=== PATIENT | female | born 1985 | race Caucasian/White ===

== ENCOUNTER → 2023-07-05 13:35 | Outpatient (CLI) | payer OTHER, SELFPAY ==
--- NOTE | ~2023-07-05 | MM_ITS ---
EXAMINATION: MM scrn ken implant BI w leonidas HISTORY: Screening mammogram TECHNIQUE: Craniocaudal and mediolateral oblique 3-D tomosynthesis images with implant displacement a nd synthetic 2-D images were generated. Craniocaudal and mediolateral oblique views of the breasts wi thout implant displacement were obtained using full field digital mammography. CAD analysis was submi tted and interpreted. COMPARISON: No prior mammogram is available for comparison at this institution. BREAST PARENCHYMAL COMPOSITION: The breasts are extremely dense, which lowers the sensitivity of mamm ography FINDINGS: There are focal asymmetries in the medial aspect of the right breast no mammographic eviden ce for malignancy in the left breast. IMPRESSION: 1. Right breast asymmetries. 2. Additional mammographic views and possible breast ultrasound are recommended. BI-RADS Category 0: Incomplete: Needs additional imaging evaluation. Reviewed, dictated and finalized at location A. X FASHIONS DESIGNER IMPRESSION: 1. Right breast asymmetries. 2. Additional mammographic views and possible breast ultrasound are recommended . BI-RADS Category 0: Incomplete: Needs additional imaging evaluation.
== END ==
DX: Z12.31 Encounter for screening mammogram for malignant neoplasm of breast (principal); R92.8 Other abnormal and inconclusive findings on diagnostic imaging of breast
CPT/HCPCS: 77063; 77067

== ENCOUNTER → 2023-08-02 09:32 | Outpatient (CLI) | payer OTHER, SELFPAY ==
--- NOTE | ~2023-08-02 | MMUS_ITS ---
EXAMINATION: MM diag ken implant RT w leonidas, US breast RT complete HISTORY: Follow-up right breast asymmetry TECHNIQUE: Additional 3-D tomosynthesis images of the right breast were performed and synthetic 2-D i mages were generated. CAD analysis was submitted and interpreted. High resolution complete right soraida st ultrasound was performed. COMPARISON: 07/05/2023 BREAST PARENCHYMAL COMPOSITION: The breasts are extremely dense, which lowers the sensitivity of mamm ography FINDINGS: MAMMOGRAPHIC FINDINGS: There are no suspicious masses, calcifications or architectural distortion in the right breast to sug gest malignancy. There is a subpectoral saline implant. ULTRASOUND: Complete US of all 4 quadrants of the right breast and retroareolar region was reviewed. Normal heter ogeneous echotexture without focal solid or cystic mass. IMPRESSION: 1. No evidence for malignancy in the right breast. 2. Routine yearly screening mammogram and regular clinical breast examination are recommended. BI-RADS Category 1: Negative Reviewed, dictated and finalized at location A. R COVERING PRINTER IMPRESSION: 1. No evidence for malignancy in the right breast. 2. Routine yearly screening mammogram and regular clinical breast examination a re recommended. BI-RADS Category 1: Negative
== END ==
DX: R92.8 Other abnormal and inconclusive findings on diagnostic imaging of breast (principal)
CPT/HCPCS: 76641; 77061; 77065; G0279

== ENCOUNTER 2025-05-25 08:25 | Outpatient (CLI) | payer OTHER, SELFPAY ==
--- NOTE | ~2025-05-25 | MM_ITS ---
EXAMINATION: MM scrn ken implant BI w leonidas HISTORY: Screening mammogram TECHNIQUE: Craniocaudal and mediolateral oblique 3-D tomosynthesis images with implant displacement and synthetic 2-D images were generated. Craniocaudal and mediolateral oblique views of the breasts without implant displacement were obtained using full field digital mammography. CAD analysis was submitted and interpreted. COMPARISON: Comparison to multiple prior studies sequentially, with oldest reviewed study dated 07/05/2023. BREAST PARENCHYMAL COMPOSITION: Dense: The breasts are extremely dense, which lowers the sensitivity of mammography. FINDINGS: There is no evidence of suspicious mass, calcification, or architectural distortion to suggest malignancy in either breast. There has been no suspicious interval change. IMPRESSION: 1. No mammographic evidence of malignancy. 2. Recommend routine screening mammography in one year. BI-RADS Category 1: Negative Reviewed, dictated and finalized at location C. ITECTURAL TECHNICIAN
--- OUTSIDE RECORDS SUMMARY | 2025-05-25 08:38 | XMS_ITS | Encounter Summary ---
Author Organization [facility] Address 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 [address] [address] Jesus Coates MD [address] [facility] [address] [place] [address] documented as of this encounter Procedures Procedure Name Priority Date/Time Associated Diagnosis Comments CBC WITH DIFFERENTIAL Stat 12/24/2007 6:01 AM CDT TYPE AND SCREEN Routine 12/24/2007 5:55 AM CDT documented in this encounter Results * (ABNORMAL) CBC WITH DIFFERENTIAL (12/24/2007 6:01 AM CDT) RBC 4.17 3.90 - 4.90 M/uL [facility] MCHC 35.6(H) 31.5 - 35.5 % [facility] MCV 91.6 82.0 - 99.0 fL [facility] PLATELETS 149 140 - 350 K/uL [facility] HEMOGLOBIN 13.6 11.8 - 14.8 g/dL [facility] RDW 13.2 11.5 - 14.5 % [facility] WBC 9.0 4.0 - 9.8 K/uL [facility] MCH 32.6 27.2 - 32.6 pg [facility] MPV 11.2 9.3 - 12.4 fL [facility] HEMATOCRIT 38.2 35.5 - 44.0 % [facility] RDW-STDEV 43.7 37.1 - 48.7 fL [facility] MONOCYTES 10 3 - 13 % [facility] MONOCYTE ABSOLUTE 0.91 0.10 - 1.30 K/uL [facility] NEUTROPHILS 69 45 - 70 % [facility] NEUTROPHIL ABSOLUTE 6.17 1.90 - 7.00 K/uL [facility] EOSINOPHILS 1 0 - 7 % [facility] EOSINOPHIL ABSOLUTE 0.09 0.00 - 0.70 K/uL [facility] LYMPHOCYTES 20 16 - 45 % [facility] LYMPHOCYTE ABSOLUTE 1.79 0.70 - 4.50 K/uL [facility] BASOPHILS 0 0 - 2 % [facility] BASOPHILS ABSOLUTE 0.01 0.00 - 0.20 K/uL [facility] Blood specimen (specimen) 12/24/2007 6:01 AM CDT 12/24/2007 6:01 AM CDT Mt Kaiser MD HEMATOLOGY ORDERABLES Edited INTERFACE SYSTEM Refer to clinic/hospital department [facility] CLIA# [id number] [address] [place] [address] * TYPE AND SCREEN (12/24/2007 5:55 AM CDT) HISTORY CHECK No Historical ABO/Rh [facility] ABO/RH TYPE A Positive [facility] SPECIMEN LIFE 3 days from drawdate [facility] ANTIBODY SCREEN Negative [facility] Blood specimen (specimen) 12/24/2007 5:55 AM CDT Mt Kaiser MD BLOOD BANK ORDERABLES Edited Performing Organization Address City/[facility] de Phone Number [facility] CLIA# [id number] [address] [place] [address] documented in this encounter Visit Diagnoses Diagnosis Normal delivery documented in this encounter Care Teams Groover And Turner Relationship Specialty Start Date End Date Jesus Coates MD [address] [facility] [address] [place] [address] PCP - General Internal Medicine 04/16/11 documented as of this encounter
--- OUTSIDE RECORDS SUMMARY | 2025-05-25 08:39 | XMS_ITS | Clinical Summary ---
Author Organization [facility] Address [address] [place] [address] Care Team Providers Care It Project Coordinator Name Role Phone Jesus Coates MD Primary Care Provider [phone] Arian Lora PT Unavailable Unavailable Allergies Active Allergy Reactions Criticality Noted Date Comments Codeine Anaphylaxis,Itching, Shortness of breath High 08/12/2008 Morphine Anaphylaxis High 04/16/2011 Medications ibuprofen (ADVIL,MOTRIN) 200 mg tab/cap Take 2 tablet/capsule (400 mg total) by mouth every 6 (six) hours as needed for pain Active acetaminophen (TYLENOL) 500 mg tablet Take 2 tablets (1,000 mg total) by mouth as needed for pain Active vitamin B complex capsuleIndicati ons:Vitamin Deficiency Take 1 capsule by mouth daily before breakfast Active Breo Ellipta 200-25 mcg/dose diskus inhaler TAKE 1 PUFF BY MOUTH EVERY DAY Active tretinoin (RETIN-A) 0.1 % cream APPLY THIN LAYER TO FACE AT BEDTIME 4 Active naproxen (NAPROSYN) 500 mg tablet Take 1 tablet (500 mg total) by mouth 2 (two) times a day with meals 30 tablet 5 Active lidocaine (LIDODERM) 5 % Place 1 patch on the skin daily for 12 hours for 14 days Remove & discard patch within 12 hours or as directed by . 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 RTO 12m. I will send the results to the portal. If she has not heard in a week, to call the office. Will arrange for her to have gardasil Migraine 06/24/2023 Menorrhagia 08/12/2008 Resolved Problems Problem Noted Date Diagnosed Date Resolved Date Acne 12/24/2022 07/27/2024 Bicipital tendonitis of left shoulder 01/08/2022 07/27/2024 Overview (01/08/2022): Added automatically from request for surgery [id number] Instability of left shoulder joint 02/23/2019 07/27/2024 Overview (02/23/2019): Added automatically from request for surgery [id number] Abnormal liver function tests 03/06/2009 07/27/2024 Alcohol intoxication 03/06/2009 025 Nausea with vomiting 03/06/2009 025 Seizure 03/05/2009 07/27/2024 Immunizations Immunization Administration Dates Next Due Moderna SARS-CoV-2 Monovalent Vaccination (12+ Y RS) 02/24/2021,08/05/2020 Surgical History Surgery Date Site/Laterality Comments SHOULDER SURGERY 08/15/2016 - 09/11/2016 Left scope--anchors placed CLAVICLE SURGERY 07/15/2003 - 07/14/2004 Left no hardware. TONSILLECTOMY 07/15/2012 - 07/14/2013 became septic post-op in ICU 5 days AUGMENTATION MAMMAPLASTY 07/15/2002 - 07/14/2003 SHOULDER ARTHROSCOPY W/ CAPSULAR REPAIR 07/15/2018 - 07/14/2019 Medical History Medical History Date Comments Anemia MTHFR, clotting disorder- reports h/o clot in umbilical cord when , denies h/o DVT/PE Migraines last migraine >1 year ago. No meds at this time Acne Seizures (HCC) reports in child nesbitt, last age ~15 Abnormal liver function tests 03/06/2009 Bicipital tendonitis of left shoulder 01/08/2022 Added automatically from req uest for surgery [id number] Instability of left shoulder joint 02/23/2019 Added automatically from request for surgery [id number] Seizure (HCC) 03/05/2009 Family History Medical History Relation Name Comments Hyperlipidemia Father Cancer Neg Hx no colon, breas t or obstetrics gynecology physician cancer cmt 07/27/24 Relation Name Status Comments Father Social History Tobacco Use Types Packs/Day Years Used Date Smoking Tobacco: Never Smokeless Tobacco: Never Tobacco Cessation:Counseling Given: Not Answered Alcohol Use Standard Drinks/Week Comments Yes 1 (1 standard drink = 0.6 oz pur e alcohol) Humiliation, Afraid, Rape, and Kick questionnair e Answer Date Recorded Within the last year, have y ou been afraid of your partner or ex-partner? No 07/27/2024 Within the last year, have y ou been humiliated or emotionally abused in other ways by your partner or ex-partner? No Within the last year, have y ou been kicked, hit, slapped, or otherwise physically hurt by your partner or ex-partner? No 07/27/2024 Within the last year, have y ou been raped or forced to have any kind of sexual activity by your partner or ex-partner? No 07/27/2024 AUDIT-C Answer Date Recorded Q1: How often do you have a drink containing alc ohol? 2-4 times a month 02/09/2022 Q2: How many drinks containi ng alcohol do you have on a typical day when you are drinking? 1 or 2 02/09/2022 Q3: How often do you have si x or more drinks on one occasion? Never 02/09/2022 PHQ-2 Answer Date Recorded PHQ-2 Total Score (If total score is 3 or more points, staff should administer the PHQ-9) 0 07/27/2024 Personal Safety Answer Date Recorded Have you ever been in or are you currently in a harmful physical or emotional relationship or is someone making you feel afraid or unsafe? 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 Gender Identity Not on file Sexual Orientation Not on file Obstetrics History Para Term AB IAB SAB Ectopic Multiple Livin g Live Births 2 2 1 1 Date Outcome GA Total Labor Labor/2nd/3rd Weight Sex Type Anes PTL Yojana A1 A5 Name Clin Term Last Filed Vital Signs Vital Sign Reading Time Taken Comments Blood Pressure 138/92 01/29/2025 8:06 PM CDT Pulse 72 01/29/2025 8:06 PM CDT Temperature 37.3 C (99.1 F) 01/29/2025 3:21 PM CDT Respiratory Rate 18 01/29/2025 8:06 PM CDT Oxygen Saturation 97% 01/29/2025 8:06 PM CDT Inhaled Oxygen Concentration - - Weight 63.5 kg (140 lb) 01/29/2025 3:21 PM CDT Height 167.6 cm (5' 6) 01/29/2025 3:21 PM CDT Body Mass Index 22.6 01/29/2025 3:21 PM CDT Plan of Treatment Health Maintenance Due Date Last Done Comments Breast Cancer Screening-Mammogram 1983 Cervical Cancer Screening 1983 Hepatitis C Screening 1983 Varicella Vaccines (1 of 2 - 13+ 2-dose series) 1996 Pneumococcal vaccine <65 (1 of 2 - PCV) 2002 HPV Vaccines (1 - 3-dose SCD M series) 2010 Covid-19 Vaccine (3 - 2024-2 6 season) 2025 02/24/2021, 08/05/2020 Influenza Vaccine (#1) 2025 3, 05/08/2022, 05/07/2022, Additional history exists Depression Screening 07/27/2025 07/27/2024 Regular Well Visit/Exam 18-64 07/27/2025 07/27/2024 DTaP/Tdap/Td Vaccine (4 - Td or Tdap) 05/19/2033 05/19/2023, 01/29/2022, 10/05/2016 Hepatitis B Screening Completed 01/11/2009 , 09/13/2008, 08/12/2008 Medical Devices Implanted Type Area Corduroy Cutting Supervisor Device Identifier Shelf Expiration Date Model / Serial / Lot [employer] [id number] Corkscrew Suturetape 5.5mm 14.7mm Bioabsorbable Full Thread 1.3mm - [id number] Implanted:Qty: 3 on 03/23/2019 by Ramirez Hart MD at [facility] Left: Shoulder [employer] 11/11/2020 [id number] / / [id number] [employer] 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
--- OUTSIDE RECORDS SUMMARY | 2025-05-25 08:39 | XMS_ITS | Patient Health Record ---
Author Organization [facility] ([address]) Address [address] [address] Care Team Providers Care Telemetry Monitor Name Role Phone Jesus Coates Primary Care Provider Suzy Malloy Unavailable [phone] Allergies Allergen (clinical drug ingredient) Drug/Non Drug Allergy documented on EMR Reaction Allergy Type Onset Date Status codeine Codeine (uncoded) anaphylaxis Allergy Active morphine Morphine anaphylactoid Drug Allergy Act zachery Reason For Referral No Information Medications Medication SIG (Take, Route, Frequency, Duration) Notes Start Date End Date Status Diflucan 100 MG 1 tablet Orally Active Doxycycline 40 MG 1 capsule in the mor carl on an empty stomach Orally Once a day Active Spironolactone 100 MG 1 tablet Orally On ce a day Active B Complex - as directed Orally Active Breo Ellipta 100-25 MCG/ACT 1 puff Inhal ation Once a day Active Immunizations Vaccine Route Administration Date Status Comme nts Hepatitis B (20 and more) Unknown 01/11/2009 Administer ed Portal Information Hepatitis A Unknown 01/11/2009 Administered Portal Info rmation NOC Tdap Unknown 04/18/2022 Administered Portal Infor mation Influenza Unknown 05/06/2023 Administered Portal Infor mation Social History Tobacco Use: Social History Observation Description Date Details (start date - stop date) Never Smoker NA - NA Tobacco Control (Standard) Question Answer Notes Tobacco use: Nonsmoker Problems Problem Type SNOMED Code ICD Code Onset Dates Problem Status W/U Status Risk Notes Problem Chronic allergic conjunctivitis (18014366) Other chronic allergic conjunctivitis (H10.45) Active confirmed Problem Allergic rhinitis caused by pollen (disorder) (25193914) Allergic rhinitis due to pollen (J30.1) Active confirmed Problem Allergic rhinitis (13573618) Other allergic rhinitis (J30.89) Active confirmed Problem Chronic rhinitis (17229479) Chronic rhinitis (J31.0) Active confirmed Problem Allergy status t o narcotic agent (Z88.5) Active confirmed Plan Of Treatment Pending Test Test Name Order Date RESPIRATORY ALLERGY PROFILE REGION VIII: [place], [place] 03/18/2024 TETANUS ANTITOXOID ANTIBODY (EIA) 2023 DIPHTHERIA ANTITOXOID ANTIBODY 4 IMMUNOGLOBULINS G/A/M 03/18/2024 HAEMOPHILUS INFLUENZAE B ANTIBODY, IGG 0 03/18/2024 S. PNEUMONIAE IGG AB, 23 SEROTYPES, S Insurance Providers Payer Name Payer Address Payer Phone Subscriber Number Group Number Insured Name Patient Relationship to Insured Coverage Start Date Coverage End Date [facility] [address] [place], [place] [address] [id number] Coleman Roach Self - patient is the insured Medical (General) History Medical History History ICD Code Unspecified asthma, uncomplicated J45.90 9 Surgical History Surgery Date(Month/Year) Shoulder surgery 03/28/2023 Shoulder surgery 02/23/2022 tonsillectomy 08/24/2013 Breast Implants 07/15/2003 shoulder surgery 2020 shoulder surgery 2017 shoulder surgery 2019 right ankle sugery 1999 ear tubes 1985 ear tubes 1987 Hospitalization History Reason Date(Month/Year) urosepsis 1989 Sepsis after tonsillectomy 08/25/2013
--- OUTSIDE RECORDS SUMMARY | 2025-05-25 08:39 | XMS_ITS | Clinical Summary ---
Author Organization [facility] Address [address] [place] [address] Care Team Providers Care Fabric Worker Foreman Name Role Phone Jesus Coates MD Primary Care Provider [phone] Allergies Active Allergy Reactions Criticality Noted Date Comments Codeine Anaphylaxis,Shortnes s of Breath/Wheezing,Itching High 08/12/2008 Morphine Anaphylaxis High 04/16/2011 Medications vitamin B complex Tablet Take 1 Tab by mouth daily. Active ubrogepant (Ubrelvy) 100 mg tablet Take 1 tablet at the onset of migraine and may repeat x 1 (2) hours later. Maximum 200 mg/24 hours 16 Tablet 11 4 Active Additional Information Patient taking differently: CONTINUOUS PRN, Take 1 tablet at the onset of migraine and may repeat x 1 (2) hours later. Maximum 200 mg/24 hours, Reported on 03/08/2025 cholecalciferol , vitD3,/vit K2 (vitamin D3-vitamin K2) 125-90 mcg Capsule Take 1 Tablet by mouth daily. Active fluticasone furoate-vilante roL (Breo Ellipta) 100-25 mcg/dose Disk with Device Take 1 Puff by inhalation daily. Active albuterol-budes onide (Airsupra) 90-80 mcg/actuation HFA Aerosol Inhaler Take 2 Puffs by inhalation Continuous as needed. Active Active Problems Patient Care Coordination No te Formatting of this note migh t be different from the original. Dr. Traylor - Neurologist Problem Noted Date Diagnosed Date Acne 12/24/2022 Seizure disorder 04/16/2011 Menorrhagia 08/12/2008 Migraine Resolved Problems Problem Noted Date Diagnosed Date Resolved Date Pharyngitis, streptococcal 08/15/2013 0 02/21/2016 Streptococcal bacteremia 08/15/201303/2016 Fever 08/14/2013 02/21/2016 Status post tonsillectomy 08/14/2013 Dysphagia 07/04/2011 02/21/2016 Lymphadenopathy 04/16/2011 02/21/2016 MTHFR mutation 08/12/2008 02/21/2016 Encounters Date Type Department Care Team Description 05/18/2025 External Device Data STL ABSTRACTION Provider, Abstract 05/11/2025 External Device Data STL ABSTRACTION Provider, Abstract 05/04/2025 External Device Data ST[facility] ABSTRACTION Provider, Abstract 03/24/2025 Results Follow-Up [facility] [place] [address] [address] [facility] [place] [address] Poornima Richard ANP CBC WITH DIFFERENTIAL, COMPREHENSIVE METABOLIC PANEL, TSH REFLEXIVE, Additional followed-up results: 3 03/08/2025 2:00 PM CDT Office Visit [facility] [address] [facility] [place] [address] Poornima Richard ANP Annual physical exam (Primary Dx); Seizure disorder (CMS/HCC); Migraine without status migrainosus, not intractable, unspecified migraine type; Mild persistent asthma without complication from Last 3 Months Immunizations Immunization Administration Dates Next Due (ADACEL/BOOSTRIX)(10 YR UP) TDAP VACCINE, 0.5ML, IM 05/19/2023,01/29/2022,10/05/2016 10/05/2026 (HAVRIX/VAQTA)(19 YRS UP) HE PATITIS A VACCINE ADULT DOSAGE 1 ML IMM 01/11/2009,08/12/2008 (RECOMBIVAX HB/ENGERIX-B)(11 YR UP) HEPATITIS B VACCINE 10 MCG/1 ML OR 20 MCG/1 ML ADOL OR ADULT 2 - 3 DOSE PF, IM 01/11/2009,09/13/2008,08/12/2008 (SPIKEVAX) (12 YRS UP PRIMAR Y SERIES) COVID-19 VACCINE - MRNA-1273(PF) 100 MCG/0.5 ML IM SUSP 02/24/2021,08/05/2020 INFLUENZA VACCINE QUADRIVALE NT 3 YR UP PF IM 04/02/2016 Influenza Seasonal Unspecifi ed Formulation IM 06/04/2021,04/24/2019,04/07/2013,04/02 Influenza Vaccine Split 3+ Yrs PF IM 05/15/2011 Influenza, Unspecified Formulation 05/06,05/07/2022,06/04/2021,04/24,04/02/2016,04/08/2014,04/07/2013 ,04/02/2012,05/15/2011 Family History Medical History Relation Name Comments Healthy Father Lung Cancer Maternal Grandfather Melanoma Maternal Grandfather Breast Cancer Maternal Grandmother Stroke Mother Healthy Sister 1 Alejandra Healthy Sister 2 Brittany Healthy Sister 3 Maria D Healthy Son [place] Relation Name Status Comments Father Alive Maternal Grandfather Maternal Grandmother Mother Alive Sister 1 Alejandra Alive Sister 2 Brittany Alive Sister 3 Maria D Alive Son [place] Alive Social History Tobacco Use Types Packs/Day Years Used Date Smoking Tobacco: Never Smokeless Tobacco: Never Tobacco Cessation:Counseling Given: Not Answered Alcohol Use Standard Drinks/Week Comments Yes 0 (1 standard drink = 0.6 oz pur e alcohol) 1/ MONTH Comments No Sex and Gender Information Value Date Recorded Sex Assigned at Not on file Legal Sex Female 5:33 AM 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 OPERATOR Gender Identity Not on file Sexual Orientation Not on file Occupation Industry Job Start Date Job End Date Not on file Not on file 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 Last Filed Vital Signs Vital Sign Reading Time Taken Comments Blood Pressure 108/70 03/08/2025 1:41 PM CDT Pulse 61 03/08/2025 1:41 PM CDT Temperature 36.1 C (96.9 F) 03/08/2025 1:41 PM CDT Respiratory Rate 18 08/17/2013 11:56 AM BARRATTE OPERATOR Oxygen Saturation 98% 03/08/2025 1:41 PM CDT Inhaled Oxygen Concentration - - Weight 66.7 kg (147 lb) 03/08/2025 1:41 PM CDT Height 167.6 cm (5' 6) 03/08/2025 1:41 PM CDT Body Mass Index 23.73 03/08/2025 1:41 PM CDT Plan of Treatment Upcoming Encounters Date Type Department Care Team (Late st Contact Info) Description 03/09/2026 2:00 PM CDT Office Visit [facility] [place] [facility] [address] [address] Jesus Coates MD [address] [place] [address] Health Maintenance Due Date Last Done Comments HPV/Cotest (21-29) 2004 HPV VACCINES (1 - 3-dose SCDM series) 2010 HPV/Cotest (30-65) 2013 PAP SMEAR 02/13/2024 02/12/2021 (Prev iously completed), 02/12/2018 BREAST CANCER SCREENING 08/02/2024 08/02/2023 INFLUENZA VACCINE (#1) 2025 , 05/15/2020 (Previously completed), 04/24/2019, Additional history exists COVID-19 Vaccine ( season) 2025 02/24/2021, 08/05/2020 CERVICAL CANCER SCREENING 03/08/2026 Po stponed from 2004 (Other) DTAP/TDAP/TD VACCINES (4 - Td or Tdap) 05/19/2033 05/19/2023, 01/29/2022, 10/05/2016 HEPATITIS B VACCINES Completed 01/11/2009, 09/13/2008, 08/12/2008 Procedures Procedure Name Priority Date/Time Associated Diagnosis Comments VITAMIN D 25 HYDROXY Routine 03/23/2025 8:01 AM CDT Annual physical exam HEMOGLOBIN A1C Routine 03/23/2025 8:01 AM CDT Annual physical exam LIPID PANEL Routine 03/23/2025 8:01 AM CDT Annual physical exam TSH REFLEXIVE Routine 03/23/2025 8:01 AM CDT Annual physical exam COMPREHENSIVE METABOLIC PANEL Routine 03/23/2025 8:01 AM CDT Annual physical exam CBC WITH DIFFERENTIAL Routine 03/23/2025 8:01 AM CDT Annual physical exam MAMMO DIAGNOSTIC UNI RIGHT W OR WO CAD Routine 08/02/2023 Abnormal mammogram of right breast from Last 3 Months or Most Recently Relevant to Health Maintenance Results * TSH REFLEXIVE (03/23/2025 8:01 AM CDT) TSH 1.45 mIU/L [facility] Comment: Reference Range > or = 20 Years 0.40-4.50 Ranges First trimester 0.26-2.66 Second trimester 0.55-2.73 Third trimester 0.43-2.91 FASTING:YES FASTING: YES Test Performed at: [facility] [address] [place] [address] Johana Stanton MD Blood 03/23/2025 8:01 AM CDT 03/23/2025 8:03 AM CDT Poornima MCCRAY CHEMISTRY ORDERABLES Final Result [facility] [phone] [facility] [address] * CBC WITH DIFFERENTIAL (03/23/2025 8:01 AM CDT) WBC 6.1 3.8 - 10.8 Thousand/u L [facility] RBC 4.45 3.80 - 5.10 Million/uL [facility] HEMOGLOBIN 14.1 11.7 - 15.5 g/dL [facility] HEMATOCRIT 42.6 35.0 - 45.0 % [facility] MCV 95.7 80.0 - 100.0 fL [facility] MCH 31.7 27.0 - 33.0 pg [facility] MCHC 33.1 32.0 - 36.0 g/dL [facility] Comment: For adults, a slight decrease in the calculated MCHC value (in the range of 30 to 32 g/dL) is most likely not clinically significant; however, it should be interpreted with caution in correlation with other red cell parameters and the patient's clinical condition. RDW 12.4 11.0 - 15.0 % [facility] PLATELETS 252 140 - 400 Thousand/u L [facility] MPV 10.5 7.5 - 12.5 fL [facility] NEUTROPHIL ABSOLUTE 3,556 1,500 - 7,800 cells/uL [facility] LYMPHOCYTE ABSOLUTE 1,598 850 - 3,900 cells/uL [facility] MONOCYTE ABSOLUTE 421 200 - 950 cells/uL [facility] EOSINOPHIL ABSOLUTE 482 15 - 500 cells/uL [facility] BASOPHILS ABSOLUTE 43 0 - 200 cells/uL [facility] NEUTROPHIL 58.3 % [facility] LYMPHOCYTES 26.2 % [facility] MONOCYTE 6.9 % [facility] EOSINOPHILS 7.9 % [facility] BASOPHILS 0.7 % [facility] Comment: FASTING:YES FASTING: YES Test Performed at: [facility] [address] [place] [address] Johana Stanton MD Blood 03/23/2025 8:01 AM CDT 03/23/2025 8:03 AM CDT Poornima Richard ANP HEMATOLOGY ORDERABLE S Final Result [facility] [phone] [facility] [id number] [place] [address] * VITAMIN D 25 HYDROXY (03/23/2025 8:01 AM CDT) VITAMIN D, 25 OH, TOTAL 66 30 - 100 ng/mL [facility] Comment: Vitamin D Status 25-OH Vitamin D: Deficiency: <20 ng/mL Insufficiency: 20 - 29 ng/mL Optimal: > or = 30 ng/mL For 25-OH Vitamin D testing on patients on D2-supplementation and patients for whom quantitation of D2 and D3 fractions is required, the [facility](TM) 25-OH VIT D, (D2,D3), LC/MS/MS is recommended: order code 51268 (patients >2yrs). See Note 1 Note 1 For additional information, please refer to http://education.Shoto/faq/VYX215 (This link is being provided for informational/ educational purposes only.) FASTING:YES FASTING: YES Test Performed at: [facility] [address] [place] [address] Johana Stanton MD Blood 03/23/2025 8:01 AM CDT 03/23/2025 8:03 AM CDT Poornima Richard [facility] CHEMISTRY ORDERABLES Final Result [facility] [phone] [facility] [address] [place] [address] * HEMOGLOBIN A1C (03/23/2025 8:01 AM CDT) HEMOGLOBIN A1C 5.1 <5.7 % of total Hgb [facility] Comment: For the purpose of screening for the presence of diabetes: <5.7% Consistent with the absence of diabetes 5.7-6.4% Consistent with increased risk for diabetes (prediabetes) > or =6.5% Consistent with diabetes This assay result is consistent with a decreased risk of diabetes. Currently, no consensus exists regarding use of hemoglobin A1c for diagnosis of diabetes in children. According to [place] Diabetes Association (ADA) guidelines, hemoglobin A1c <7.0% represents optimal control in non- diabetic patients. Different metrics may apply to specific patient populations. Standards of Medical Care in Diabetes(ADA). ESTIMATED AVERAGE GLUCOSE (MG/DL) 100 mg/dL [facility] ESTIMATED AVERAGE GLUCOSE (MMOL/L) 5.5 mmol/L [facility] Comment: FASTING:YES FASTING: YES Test Performed at: [facility] [address] [place] [address] Johana Stanton Blood 03/23/2025 8:01 AM CDT 03/23/2025 8:03 AM CDT Poornima MCCRAY CHEMISTRY ORDERABLES Final Result [facility] [phone] [facility] [address] [place] [address] * LIPID PANEL (03/23/2025 8:01 AM CDT) CHOLESTEROL 170 <200 mg/dL [facility] HDL 69 > OR = 50 mg/dL [facility] TRIGLYCERIDE 66 <150 mg/dL [facility] LDL CALCULATED 86 mg/dL (calc) [facility] Comment: Reference range: <100 Desirable range <100 mg/dL for primary prevention; <70 mg/dL for patients with CHD or diabetic patients with > or = 2 CHD risk factors. LDL-C is now calculated using the Rodríguez-Obey calculation, which is a validated novel method providing better accuracy than the Friedewald equation in the estimation of LDL-C. Rodríguez SS et al. JEFF. 2013;310(19): 2808-2822 (http://education.Shoto/faq/TSP985) CHOL/HDL RATIO 2.5 <5.0 (calc) [facility] NON-HDL CHOLESTEROL 101 <130 mg/dL (calc) [facility] Comment: For patients with diabetes plus 1 major ASCVD risk factor, treating to a non-HDL-C goal of <100 mg/dL (LDL-C of <70 mg/dL) is considered a therapeutic option. Test Performed at: [facility] [address], [place] [address] Johana Stanton MD Blood 03/23/2025 8:01 AM CDT 03/23/2025 8:03 AM CDT Poornima MCCRAY CHEMISTRY ORDERABLES Final Result [facility] [phone] [facility] [address] [facility] [place] [address] * COMPREHENSIVE METABOLIC PANEL (03/23/2025 8:01 AM CDT) GLUCOSE 92 65 - 99 mg/dL [facility] Comment: Fasting reference interval BUN 17 7 - 25 mg/dL [facility] CREATININE 0.87 0.50 - 0.99 mg/dL [facility] GFR 86 > OR = 60 mL/min/1. 73m2 [facility] BUN/CREAT RATIO SEE NOTE: (calc) [facility] Comment: Not Reported: BUN and Creatinine are within reference range. SODIUM 141 135 - 146 mmol/L [facility] POTASSIUM 4.2 3.5 - 5.3 mmol/L [facility] CHLORIDE 105 98 - 110 mmol/L [facility] CO2 29 20 - 32 mmol/L [facility] CALCIUM 9.0 8.6 - 10.2 mg/dL [facility] TOTAL PROTEIN 6.4 6.1 - 8.1 g/dL [facility] ALBUMIN 4.5 3.6 - 5.1 g/dL [facility] GLOBULIN 1.9 1.9 - 3.7 g/dL (calc) [facility] ALBUMIN/GLOBULIN RATIO 2.4 1.0 - 2.5 (calc) [facility] BILIRUBIN TOTAL 0.6 0.2 - 1.2 mg/dL [facility] ALKALINE PHOSPHATASE 34 31 - 125 U/L [facility] AST 21 10 - 30 U/L [facility] ALT 15 6 - 29 U/L [facility] Comment: Test Performed at: [facility] [address] [facility] [place] [address] Johana Stanton MD Blood 03/23/2025 8:01 AM CDT 03/23/2025 8:03 AM CDT Poornima MCCRAY CHEMISTRY ORDERABLES Final Result [facility] [phone] [facility] [address] [place] [address] * MAMMO DIAGNOSTIC UNI RIGHT W OR WO CAD (08/02/2023) Anatomical Region Laterality Modality Breast Right Mammography Jesus Coates MD MAMMO ORDERABLES Final Result from Last 3 Months or Most Recently Relevant to Health Maintenance Insurance RX [employer] RX Member Subscriber Plan / Payer (Ef fective 2024-Present) Name:Coleman Roach Relation to Subscriber:Not on file Name:Coleman Roach Date of :1985 Payer ID:Not on file Group ID:[id number] Type:RX Commercial Address: [address] [place] [facility] [address] Advance Directives For more information, please contact: [phone] * Full Code (Latest Code Status on File) Date Activated Date Inactivated Comments 08/13/2013 10:09 AM 08/13/2013 9:05 PM * Full Code Date Activated Date Inactivated Comments 08/13/2013 9:30 AM 08/13/2013 10:09 AM * Full Code Date Activated Date Inactivated Comments 08/13/2013 7:16 AM 08/13/2013 9:30 AM Care Teams Fabric Worker Foreman Relationship Specialty Start Date End Date Jesus Coates MD [address] [place] [address] PCP - General Internal Medicine 04/16/11
--- OUTSIDE RECORDS SUMMARY | 2025-05-25 08:39 | XMS_ITS | Encounter Summary ---
Author Organization [facility] Address [address] [place] [address] Care Team Providers Care Security Developer Name Role Phone Jesus Coates MD Primary Care Provider [phone] Encounter Details Date Type Department Care Team (Late Contact Info) Description 03/24/2025 Results Follow-Up [facility] [place] [address] [place] [address] Poornima Richard, ANP [address] 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 Gender Identity Not on file Sexual Orientation Not on file Occupation Industry Job Start Date Job End Date Not on file Not on file 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 documented as of this encounter Plan of Treatment Upcoming Encounters Date Type Department Care Team (Late Contact Info) Description 03/09/2026 2:00 PM CDT Office Visit [facility] [place] [address] [place] [address] Jesus Coates MD [address] [address] documented as of this encounter Visit Diagnoses Not on filedocumented in this encounter Care Teams Security Developer Relationship Specialty Start Date End Date Jesus Coates MD [address] [address] PCP - General Internal Medicine 04/16/11 documented as of this encounter
== END 2025-05-25 08:26 | disposition home or self-care (01) ==
DX: Z12.31 Encounter for screening mammogram for malignant neoplasm of breast (principal)
CPT/HCPCS: 77063; 77067